=== PATIENT | male | born 1970 | race Caucasian/White ===

== ENCOUNTER 2018-01-21 10:25 | Observation (INO) | payer OTHER ==
[2018-01-21] MEDS: TRANEXAMIC ACID 1,000 MG in DEXTROSE 5% 100 ML IVPB (08:00)
[2018-01-21] MEDS: BUPIVACAINE 0.5% (SDV) 30 ML, morphine SULFATE (PF) 8 MG, EPINEPHrine 0.3 MG, KETOROLAC... IRR ×2 (08:00→15:54)
[2018-01-21] MEDS: traMADol 50 MG TAB PO (12:47)
[2018-01-21] MEDS: GABAPENTIN 300 MG CAP PO ×2 (12:47→20:56)
[2018-01-21] MEDS: DEXAMETHASONE 1 MG TAB PO (12:47)
[2018-01-21] MEDS: LACTATED RINGER'S 1,000 ML IV* (12:48)
[2018-01-21] MEDS: VANCOMYCIN 1 GM (PMX) 250 ML IVPB (13:00)
[2018-01-21] MEDS ORDERED: PROPOFOL 20 ML (13:47)
[2018-01-21] MEDS ORDERED: MIDAZOLAM 1 MG/ML 2 ML INJ (13:47)
[2018-01-21] MEDS ORDERED: ROCURONIUM 50 MG INJ (13:47)
[2018-01-21] MEDS ORDERED: FENTAnyl 50 MCG/ML VIAL (13:47)
[2018-01-21] MEDS ORDERED: NEOSTIGMINE 3 MG/3 ML SYRINGE (13:47)
[2018-01-21] MEDS ORDERED: CEFAZOLIN 1 GM INJ (13:47)
[2018-01-21] MEDS ORDERED: GLYCOPYRROLATE 0.4 MG INJ (13:47)
[2018-01-21] MEDS ORDERED: ONDANSETRON 4 MG INJ (13:48)
[2018-01-21] MEDS ORDERED: DEXAMETHASONE 4 MG/ML 1 ML INJ (13:48)
[2018-01-21] MEDS ORDERED: ROPIVACAINE 0.5 % 30 ML VIAL (13:48)
[2018-01-21] MEDS ORDERED: IPRATROPIUM (NEB) 0.5 MG/2.5 ML AMP HHN (15:00)
[2018-01-21] MEDS ORDERED: TRIMETHOBENZAMIDE 100 MG/ML VIAL IM (15:00)
[2018-01-21] MEDS ORDERED: OXYCODONE/ACETAMINOPHEN (5/325) TAB PO ×3 (15:00→16:00)
[2018-01-21] MEDS ORDERED: DIPHENHYDRAMINE 50 MG INJ IV ×2 (15:00→16:00)
[2018-01-21] MEDS ORDERED: EPHEDrine SULFATE 50 MG/5 ML SYG IV (15:00)
[2018-01-21] MEDS ORDERED: HYDROmorphONE (0.2 MG/ML) 10ML SYG IV ×3 (15:00)
[2018-01-21] MEDS ORDERED: ALBUTEROL 0.083% (NEB) 2.5 MG/3 ML AMP HHN (15:00)
[2018-01-21] MEDS ORDERED: MEPERIDINE 25 MG INJ IV (15:00)
[2018-01-21] MEDS ORDERED: ONDANSETRON 4 MG INJ IV ×2 (15:00→16:00)
[2018-01-21] MEDS ORDERED: MIDAZOLAM 1 MG/ML 2 ML INJ IV (15:00)
[2018-01-21] MEDS ORDERED: FENTAnyl 50 MCG/ML VIAL IV ×3 (15:00)
[2018-01-21] MEDS ORDERED: LABETALOL HCL 20MG INJ IV (15:00)
[2018-01-21] MEDS ORDERED: hydrALAzine 20 MG INJ IV (15:00)
[2018-01-21] MEDS: POLYMYXIN/BACITRACIN 1L IRRIG (15:55)
[2018-01-21] MEDS: THROMBIN 5000 UNIT VIAL (15:55)
[2018-01-21] MEDS: VANCOMYCIN 500MG/NS (PMX) 100 ML IVPB (16:00)
[2018-01-21] MEDS ORDERED: MAGNESIUM HYDROXIDE 30ML CUP PO (16:00)
[2018-01-21] MEDS ORDERED: ACETAMINOPHEN 500 MG TAB PO (16:00)
[2018-01-21] MEDS ORDERED: ZOLPIDEM 5 MG TAB PO (16:00)
[2018-01-21] MEDS ORDERED: KETOROLAC 15 MG INJ IV (16:00)
[2018-01-21] MEDS ORDERED: morphine 2 MG INJ IV ×2 (16:00)
[2018-01-21] MEDS ORDERED: SUGAMMADEX SODIUM 200 MG/2 ML VIAL IV (16:03)
[2018-01-21] MEDS: TRANEXAMIC ACID 1,000 MG in DEXTROSE 5% 100 ML IV (17:44)
[2018-01-21] MEDS: DEXAMETHASONE 2 MG TAB PO (18:36)
[2018-01-21] MEDS: ATORVASTATIN 10 MG TAB PO (20:56)
[2018-01-21] MEDS: SENNA/DOCUSATE NA (8.6MG/50MG) TAB PO (20:56)
[2018-01-22] MEDS: DEXAMETHASONE 2 MG TAB PO ×2 (00:15→06:14)
[2018-01-22] MEDS: VANCOMYCIN 500MG/NS (PMX) 100 ML IVPB (04:41)
[2018-01-22] MEDS: OXYCODONE/ACETAMINOPHEN (5/325) TAB PO (07:59)
[2018-01-22] MEDS: ASPIRIN 81 MG TAB PO (09:07)
[2018-01-22] MEDS: SENNA/DOCUSATE NA (8.6MG/50MG) TAB PO (09:07)
[2018-01-22] MEDS: BENAZEPRIL 20 MG TAB PO (09:08)
[2018-01-22] MEDS: HYDROCHLOROTHIAZIDE 25 MG TAB PO (09:08)
== END 2018-01-22 10:25 | disposition home or self-care (01) ==
LOC: REC 10:25 → MS1 18:08
DX: M19.011 Primary osteoarthritis, right shoulder (principal); M75.101 Unspecified rotator cuff tear or rupture of right shoulder, not specified as traumatic; E78.5 Hyperlipidemia, unspecified; I10 Essential (primary) hypertension; E66.9 Obesity, unspecified; Z68.33 Body mass index [BMI] 33.0-33.9, adult; Z88.0 Allergy status to penicillin
CPT/HCPCS: 23472; 73030-RT; 86999; 88304; 88311; 97165; 99217

== ENCOUNTER 2018-09-01 16:02 | Emergency (ER) | payer OTHER | END 2018-09-01 18:02 | disposition home or self-care (01) | LOC: FTE 16:02 | DX: L02.413 Cutaneous abscess of right upper limb (principal); R40.2412 Glasgow coma scale score 13-15, at arrival to emergency department | CPT/HCPCS: 10060; 87070; 99282-25 ==

== ENCOUNTER 2018-09-16 08:26 | Inpatient (IN) | payer OTHER ==
[~2018-09-16 08:26] MED LIST: DESFLURANE 15 MIN; EPHEDrine SULFATE 50 MG/5 ML SYG
[2018-09-16] MEDS: GABAPENTIN 300 MG CAP PO ×2 (09:38→20:39)
[2018-09-16] MEDS: DEXAMETHASONE 1 MG TAB PO (09:38)
[2018-09-16] MEDS: VANCOMYCIN 1 GM (PMX) 250 ML IVPB (09:45)
[2018-09-16] MEDS: LACTATED RINGER'S 1,000 ML IV* (09:46)
[2018-09-16] MEDS ORDERED: CEFAZOLIN 1 GM INJ (10:15)
[2018-09-16] MEDS ORDERED: MIDAZOLAM 1 MG/ML 2 ML INJ ×2 (10:15→10:16)
[2018-09-16] MEDS ORDERED: HYDROmorphONE 2 MG/ML SYG (10:15)
[2018-09-16] MEDS ORDERED: PROPOFOL 20 ML (10:15)
[2018-09-16] MEDS ORDERED: ROCURONIUM 50 MG INJ (10:15)
[2018-09-16] MEDS ORDERED: ROPIVACAINE 0.5 % 30 ML VIAL (10:16)
[2018-09-16] MEDS ORDERED: POLYMYXIN/BACITRACIN 1L IRRIG (11:07)
[2018-09-16] MEDS ORDERED: THROMBIN 5000 UNIT VIAL (11:07)
[2018-09-16] MEDS ORDERED: CA CHLORIDE 10% 10 ML SYRINGE (11:07)
[2018-09-16] MEDS ORDERED: BUPIVACAINE 0.5%/EPI (SDV) 30 ML INJ (11:07)
[2018-09-16] MEDS ORDERED: OXYCODONE/ACETAMINOPHEN (5/325) TAB PO ×2 (11:30)
[2018-09-16] MEDS ORDERED: EPHEDrine SULFATE 50 MG/5 ML SYG IV (11:30)
[2018-09-16] MEDS: POLYMYXIN/BACITRACIN 1L IRRIG IRR (11:30)
[2018-09-16] MEDS ORDERED: MEPERIDINE 25 MG INJ IV (11:30)
[2018-09-16] MEDS ORDERED: ONDANSETRON 4 MG INJ IV ×2 (11:30→14:00)
[2018-09-16] MEDS ORDERED: FENTAnyl 50 MCG/ML VIAL IV ×3 (11:30)
[2018-09-16] MEDS ORDERED: LABETALOL HCL 20MG INJ IV (11:30)
[2018-09-16] MEDS ORDERED: DIPHENHYDRAMINE 50 MG INJ IV (11:30)
[2018-09-16] MEDS ORDERED: METOCLOPRAMIDE 10 MG INJ IV (11:30)
[2018-09-16] MEDS ORDERED: hydrALAzine 20 MG INJ IV (11:30)
[2018-09-16] MEDS ORDERED: HYDROmorphONE 1 MG/5 ML IV SYRINGE IV ×3 (11:30)
[2018-09-16] MEDS ORDERED: METOCLOPRAMIDE 10 MG INJ (12:11)
[2018-09-16] MEDS ORDERED: DEXAMETHASONE 4 MG/ML 5 ML INJ (12:11)
[2018-09-16] MEDS ORDERED: ONDANSETRON 4 MG INJ (12:11)
[2018-09-16] MEDS ORDERED: KETOROLAC 30 MG INJ (12:12)
[2018-09-16] MEDS ORDERED: MINERAL OIL LIGHT 10 ML VIAL (12:14)
[2018-09-16] MEDS: BUPIVACAINE 0.5% (SDV) 30 ML, morphine SULFATE (PF) 8 MG, EPINEPHrine 0.3 MG, KETOROLAC... IRR (12:16)
[2018-09-16] MEDS ORDERED: PHENYLephrine (100 MCG/ML) 5ML SYG (12:33)
[2018-09-16] MEDS: TRANEXAMIC ACID 1,000 MG in DEXTROSE 5% 100 ML IVPB (12:46)
[2018-09-16] MEDS: VANCOMYCIN 1 GM INJ (13:33)
[2018-09-16] MEDS ORDERED: GLYCOPYRROLATE 0.4 MG INJ (13:55)
[2018-09-16] MEDS ORDERED: NEOSTIGMINE 3 MG/3 ML SYRINGE (13:55)
[2018-09-16] MEDS ORDERED: HYDROmorphONE 1 MG/ML SYG IV (14:00)
[2018-09-16] MEDS ORDERED: oxyCODONE 5 MG TAB PO (14:00)
[2018-09-16] MEDS ORDERED: VANCOMYCIN 500 MG (PMX) 100 ML IVPB ×2 (14:00→23:00)
[2018-09-16] MEDS ORDERED: NACL 0.9% 3 ML SYG IV (14:00)
[2018-09-16] MEDS ORDERED: LOPERAMIDE 2 MG CAP PO (14:00)
[2018-09-16] MEDS ORDERED: MAGNESIUM HYDROXIDE 30ML CUP PO (14:00)
[2018-09-16] MEDS ORDERED: KETOROLAC 15 MG INJ IV (14:00)
[2018-09-16] MEDS ORDERED: ZOLPIDEM 5 MG TAB PO (14:00)
[2018-09-16] MEDS: TRANEXAMIC ACID 1,000 MG in SOD CHLORIDE 0.9% 100 ML IVPB (14:30)
[2018-09-16] MEDS: LIDOCAINE 1% (MPF) 5 ML VIAL SC (16:00)
[2018-09-16 17:08] LABS: ADD MAN DIFF? NO
[2018-09-16 17:11] LABS: BASOPHILS % 0.1 % (0.0-2.0); EOSINOPHILS % 0.1 % (0.0-7.0); HEMATOCRIT 37.4 % (42.0-52.0); HEMOGLOBIN 12.4 g/dl (14.0-18.0); LYMPHOCYTES # 1.1 10^3/ul (0.8-2.9); MEAN CORPUSCULAR HEMOGLOBIN 27.8 pg (29.0-33.0); MEAN CORPUSCULAR HGB CONC 33.2 g/dl (32.0-37.0); MEAN CORPUSCULAR VOLUME 83.9 fl (82.0-101.0); MEAN PLATELET VOLUME 9.2 fl (7.4-10.4); MONOCYTE # 0.2 10^3/ul (0.3-0.9); MONOCYTES % 1.4 % (0.0-11.0); NEUTROPHIL # 12.7 10^3/ul (1.6-7.5); NEUTROPHILS % 89.6 % (39.0-77.0); PLATELET COUNT 384 10^3/UL (140-415); RED BLOOD COUNT 4.46 10^6/ul (4.70-6.10); RED CELL DISTRIBUTION WIDTH 14.2 % (11.5-14.5)
[2018-09-16 17:11] LABS: WHITE BLOOD COUNT 14.2 10^3/ul (4.8-10.8)
[2018-09-16] MEDS ORDERED: VANCOMYCIN IV PER PHARMACY XX (18:00)
[2018-09-16] MEDS: DEXAMETHASONE 2 MG TAB PO (18:25)
[2018-09-16] MEDS: ACETAMINOPHEN 500 MG TAB PO (18:25)
[2018-09-16] MEDS: oxyCODONE 5 MG TAB PO ×2 (18:47→23:11)
[2018-09-16] MEDS: MEROPENEM 1 GM/50ML(PMX) 50 ML IVPB (20:33)
[2018-09-16] MEDS: SENNA/DOCUSATE NA (8.6MG/50MG) TAB PO (20:38)
[2018-09-16] MEDS: ATORVASTATIN 10 MG TAB PO (20:39)
[2018-09-16] MEDS ORDERED: NON-FORMULARY/PATIENT OWN MED (Simvastatin* (Zocor*) 20 MG) PO (21:00)
[2018-09-17] MEDS: DEXAMETHASONE 2 MG TAB PO ×3 (00:24→13:37)
[2018-09-17] MEDS: ACETAMINOPHEN 500 MG TAB PO ×4 (00:24→18:17)
[2018-09-17] MEDS: VANCOMYCIN 1.5 GM in SOD CHLORIDE 0.9% 250 ML IVPB ×2 (00:25→13:37)
[2018-09-17] MEDS: DIPHENHYDRAMINE 50 MG INJ IV (04:04)
[2018-09-17] MEDS: PANTOPRAZOLE (EC) 40 MG TAB PO (06:09)
[2018-09-17] MEDS ORDERED: NON-FORMULARY/PATIENT OWN MED (Omeprazole* 20 MG) PO (09:00)
[2018-09-17] MEDS: LACTATED RINGER'S 1,000 ML IV* (10:00)
[2018-09-17] MEDS: SENNA/DOCUSATE NA (8.6MG/50MG) TAB PO ×3 (10:07→21:32)
[2018-09-17] MEDS: oxyCODONE 5 MG TAB PO ×2 (10:07→19:25)
[2018-09-17] MEDS: MEROPENEM 1 GM/50ML(PMX) 50 ML IVPB ×2 (10:07→21:32)
[2018-09-17] MEDS: BENAZEPRIL 20 MG TAB PO (10:08)
[2018-09-17] MEDS: LORATADINE 10 MG TAB PO (10:08)
[2018-09-17] MEDS: HYDROCHLOROTHIAZIDE 25 MG TAB PO (10:09)
[2018-09-17 17:24] LABS: ANION GAP 11 (5-13); BLOOD UREA NITROGEN 18 mg/dl (7-20); CALCIUM 9.4 mg/dl (8.4-10.2); CARBON DIOXIDE 27 mmol/L (21-31); CHLORIDE 100 mmol/L (97-110); CREATININE 0.92 mg/dl (0.61-1.24); Estimated GFR > 60 mL/min (>60); GLUCOSE 144 mg/dl (70-220); POTASSIUM 4.4 mmol/L (3.5-5.1); SODIUM 138 mmol/L (135-144)
[2018-09-17] MEDS: HEPARIN (10 UNITS/ML) 5ML SYG IV (19:25)
[2018-09-17] MEDS: ATORVASTATIN 10 MG TAB PO ×2 (21:00→21:32)
[2018-09-17] MEDS: GABAPENTIN 300 MG CAP PO ×2 (21:00→21:32)
[2018-09-18 01:13] LABS: CREATININE 0.94 mg/dl (0.61-1.24)
[2018-09-18 01:13] LABS: BLOOD UREA NITROGEN 21 mg/dl (7-20)
[2018-09-18 01:32] LABS: VANCOMYCIN,TROUGH 8.3 ug/ml (10.0-20.0)
[2018-09-18] MEDS: DIPHENHYDRAMINE 50 MG INJ IV (01:48)
[2018-09-18] MEDS: oxyCODONE 5 MG TAB PO ×3 (01:48→11:29)
[2018-09-18] MEDS: VANCOMYCIN 1.5 GM in SOD CHLORIDE 0.9% 250 ML IVPB (01:48)
[2018-09-18 05:01] LABS: ADD MAN DIFF? NO
[2018-09-18 05:06] LABS: ABNORMAL IP MESSAGE 1; BASOPHILS % 0.1 % (0.0-2.0); HEMATOCRIT 31.5 % (42.0-52.0); HEMOGLOBIN 10.1 g/dl (14.0-18.0); LYMPHOCYTES # 2.5 10^3/ul (0.8-2.9); LYMPHOCYTES % 15.5 % (15.0-51.0); MEAN CORPUSCULAR HEMOGLOBIN 27.7 pg (29.0-33.0); MEAN CORPUSCULAR HGB CONC 32.1 g/dl (32.0-37.0); MEAN CORPUSCULAR VOLUME 86.5 fl (82.0-101.0); MEAN PLATELET VOLUME 9.6 fl (7.4-10.4); MONOCYTE # 1.8 10^3/ul (0.3-0.9); MONOCYTES % 11.2 % (0.0-11.0); NEUTROPHIL # 11.6 10^3/ul (1.6-7.5); NEUTROPHILS % 72.4 % (39.0-77.0); PLATELET COUNT 354 10^3/UL (140-415); POSITIVE DIFF @See below; RED BLOOD COUNT 3.64 10^6/ul (4.70-6.10); RED CELL DISTRIBUTION WIDTH 14.6 % (11.5-14.5)
[2018-09-18 05:28] LABS: ANION GAP 8 (5-13); BLOOD UREA NITROGEN 21 mg/dl (7-20); CALCIUM 9.1 mg/dl (8.4-10.2); CARBON DIOXIDE 27 mmol/L (21-31); CHLORIDE 106 mmol/L (97-110); CREATININE 0.95 mg/dl (0.61-1.24); Estimated GFR > 60 mL/min (>60); GLUCOSE 118 mg/dl (70-220); POTASSIUM 4.2 mmol/L (3.5-5.1); SODIUM 141 mmol/L (135-144)
[2018-09-18] MEDS: ACETAMINOPHEN 500 MG TAB PO ×3 (06:00→12:47)
[2018-09-18] MEDS: PANTOPRAZOLE (EC) 40 MG TAB PO (06:03)
[2018-09-18] MEDS: MEROPENEM 1 GM/50ML(PMX) 50 ML IVPB (08:30)
[2018-09-18] MEDS: SENNA/DOCUSATE NA (8.6MG/50MG) TAB PO (08:30)
[2018-09-18] MEDS: LORATADINE 10 MG TAB PO (08:30)
[2018-09-18] MEDS: BENAZEPRIL 20 MG TAB PO (08:31)
[2018-09-18] MEDS: HYDROCHLOROTHIAZIDE 25 MG TAB PO (08:31)
[2018-09-18] MEDS: VANCOMYCIN 1.25 GM in SOD CHLORIDE 0.9% 250 ML IVPB (09:49)
[2018-09-18] MEDS: LACTATED RINGER'S 1,000 ML IV* (14:00)
== END 2018-09-18 15:10 | disposition home health service (06) | DRG 483 ==
LOC: REC 08:26 → MS1 15:29
PROVIDERS: Orthopaedic Surgery
PROC: 0RRJ0J6 Replacement of Right Shoulder Joint with Synthetic Substitute, Humeral Surface, Open Approach (ICD-10-PCS; principal; 2018-09-16 10:30)
PROC: 0RPJ0JZ Removal of Synthetic Substitute from Right Shoulder Joint, Open Approach (ICD-10-PCS; 2018-09-16 10:30)
PROC: 02HV33Z Insertion of Infusion Device into Superior Vena Cava, Percutaneous Approach (ICD-10-PCS; 2018-09-16 11:30)
PROC: B54NZZA Ultrasonography of Left Upper Extremity Veins, Guidance (ICD-10-PCS; 2018-09-16 11:30)
DX: T84.59XA Infection and inflammatory reaction due to other internal joint prosthesis, initial encounter (principal); T84.84XA Pain due to internal orthopedic prosthetic devices, implants and grafts, initial encounter; I10 Essential (primary) hypertension; E78.2 Mixed hyperlipidemia; E66.9 Obesity, unspecified; Z68.36 Body mass index [BMI] 36.0-36.9, adult; Z96.611 Presence of right artificial shoulder joint; Z88.0 Allergy status to penicillin; Y83.8 Other surgical procedures as the cause of abnormal reaction of the patient, or of later complication, without mention of misadventure at the time of the procedure
CPT/HCPCS: 36569; 71045; 76937; 80048; 80202; 82565; 84520; 85025; 87070; 87102; 87116; 88300; 88304

== ENCOUNTER 2018-10-18 17:10 | Emergency (ER) | payer OTHER ==
[2018-10-18 19:35] LABS: ADD MAN DIFF? NO
[2018-10-18 19:43] LABS: BASOPHIL # 0.1 10^3/ul (0.0-0.1); BASOPHILS % 0.8 % (0.0-2.0); EOSINOPHILS # 0.3 10^3/ul (0.0-0.5); EOSINOPHILS % 3.1 % (0.0-7.0); HEMATOCRIT 40.7 % (42.0-52.0); HEMOGLOBIN 13.5 g/dl (14.0-18.0); LYMPHOCYTES # 2.8 10^3/ul (0.8-2.9); LYMPHOCYTES % 27.9 % (15.0-51.0); MEAN CORPUSCULAR HEMOGLOBIN 28.4 pg (29.0-33.0); MEAN CORPUSCULAR HGB CONC 33.2 g/dl (32.0-37.0); MEAN CORPUSCULAR VOLUME 85.5 fl (82.0-101.0); MEAN PLATELET VOLUME 9.9 fl (7.4-10.4); MONOCYTE # 1.2 10^3/ul (0.3-0.9); MONOCYTES % 12.2 % (0.0-11.0); NEUTROPHIL # 5.6 10^3/ul (1.6-7.5); NEUTROPHILS % 55.7 % (39.0-77.0); PLATELET COUNT 332 10^3/UL (140-415); RED BLOOD COUNT 4.76 10^6/ul (4.70-6.10); RED CELL DISTRIBUTION WIDTH 15.2 % (11.5-14.5)
[2018-10-18 19:43] LABS: WHITE BLOOD COUNT 10.1 10^3/ul (4.8-10.8)
[2018-10-18 20:02] LABS: INR 0.87; PROTIME 11.9 Sec (11.9-14.9); PT RATIO 0.9
[2018-10-18 20:03] LABS: PARTIAL THROMBOPLASTIN TIME 32.3 Sec (23.0-35.0)
[2018-10-18 20:05] LABS: D-DIMER 1084.63 ng/ml (<460)
[2018-10-18 20:06] LABS: ANION GAP 11 (5-13); BLOOD UREA NITROGEN 22 mg/dl (7-20); CALCIUM 10.2 mg/dl (8.4-10.2); CARBON DIOXIDE 23 mmol/L (21-31); CHLORIDE 105 mmol/L (97-110); CREATININE 0.93 mg/dl (0.61-1.24); Estimated GFR > 60 mL/min (>60); GLUCOSE 101 mg/dl (70-220); POTASSIUM 3.7 mmol/L (3.5-5.1); SODIUM 139 mmol/L (135-144)
[2018-10-18 20:16] LABS: B-TYPE NATRIURETIC PEPTIDE 14 PG/ML (0-125); TROPONIN-I < 0.012 ng/ml (0.000-0.120)
[2018-10-18] MEDS: SOD CHLORIDE 0.9% 100 ML (21:01)
[2018-10-18] MEDS: IOHEXOL 100 ML (21:01)
== END 2018-10-18 21:55 | disposition home or self-care (01) ==
LOC: E/R 17:10
DX: D64.9 Anemia, unspecified (principal); R06.00 Dyspnea, unspecified; R40.2142 Coma scale, eyes open, spontaneous, at arrival to emergency department; R40.2252 Coma scale, best verbal response, oriented, at arrival to emergency department; R40.2362 Coma scale, best motor response, obeys commands, at arrival to emergency department; I10 Essential (primary) hypertension; Z87.891 Personal history of nicotine dependence
CPT/HCPCS: 71045; 71275; 80048; 83880; 84484; 85025; 85378; 85610; 85730; 93005; 99285-25

== ENCOUNTER 2018-12-21 06:12 | Inpatient (IN) | payer OTHER ==
[2018-12-21] MEDS: TRANEXAMIC ACID 1GM/100ML(PMX) 100 ML IVPB ×2 (06:00→09:26)
[~2018-12-21 06:12] MED LIST changes: +BUPIVACAINE 0.5% (SDV) 30 ML, morphine SULFATE (PF) 8 MG, EPINEPHrine 0.3 MG, KETOROLAC... IRR; -DESFLURANE 15 MIN; -EPHEDrine SULFATE 50 MG/5 ML SYG
[2018-12-21] MEDS: DEXAMETHASONE 1 MG TAB PO (06:31)
[2018-12-21] MEDS: GABAPENTIN 300 MG CAP PO ×2 (06:31→21:35)
[2018-12-21] MEDS: VANCOMYCIN 1 GM (PMX) 250 ML IVPB (06:32)
[2018-12-21] MEDS ORDERED: MIDAZOLAM 1 MG/ML 2 ML INJ (06:59)
[2018-12-21] MEDS ORDERED: GLYCOPYRROLATE 0.4 MG INJ (06:59)
[2018-12-21] MEDS ORDERED: PROPOFOL 20 ML (06:59)
[2018-12-21] MEDS ORDERED: ROCURONIUM 50 MG INJ (06:59)
[2018-12-21] MEDS ORDERED: ONDANSETRON 4 MG INJ (06:59)
[2018-12-21] MEDS ORDERED: FENTAnyl 50 MCG/ML VIAL (06:59)
[2018-12-21] MEDS ORDERED: DEXAMETHASONE 4 MG/ML 5 ML INJ (06:59)
[2018-12-21] MEDS ORDERED: CEFAZOLIN 1 GM INJ (06:59)
[2018-12-21] MEDS ORDERED: NEOSTIGMINE 3 MG/3 ML SYRINGE (06:59)
[2018-12-21] MEDS ORDERED: TRIMETHOBENZAMIDE 100 MG/ML VIAL IM (07:00)
[2018-12-21] MEDS ORDERED: DIPHENHYDRAMINE 50 MG INJ IV ×2 (07:00→08:30)
[2018-12-21] MEDS ORDERED: OXYCODONE/ACETAMINOPHEN (5/325) TAB PO ×2 (07:00)
[2018-12-21] MEDS ORDERED: hydrALAzine 20 MG INJ IV (07:00)
[2018-12-21] MEDS ORDERED: MEPERIDINE 25 MG INJ IV (07:00)
[2018-12-21] MEDS ORDERED: ALBUTEROL 0.083% (NEB) 2.5 MG/3 ML AMP HHN (07:00)
[2018-12-21] MEDS ORDERED: FENTAnyl 50 MCG/ML VIAL IV ×3 (07:00)
[2018-12-21] MEDS ORDERED: IPRATROPIUM (NEB) 0.5 MG/2.5 ML AMP HHN (07:00)
[2018-12-21] MEDS ORDERED: ONDANSETRON 4 MG INJ IV ×2 (07:00→08:30)
[2018-12-21] MEDS ORDERED: LABETALOL HCL 20MG INJ IV (07:00)
[2018-12-21] MEDS ORDERED: HYDROmorphONE 1 MG/5 ML IV SYRINGE IV ×3 (07:00)
[2018-12-21] MEDS ORDERED: MIDAZOLAM 1 MG/ML 2 ML INJ IV (07:00)
[2018-12-21] MEDS ORDERED: EPHEDrine SULFATE 50 MG/5 ML SYG IV (07:00)
[2018-12-21] MEDS ORDERED: ROPIVACAINE 0.5 % 30 ML VIAL (07:02)
[2018-12-21] MEDS: BUPIVACAINE 0.5%/EPI (SDV) 30 ML INJ (07:15)
[2018-12-21] MEDS: POLYMYXIN/BACITRACIN 1L IRRIG (07:15)
[2018-12-21] MEDS: THROMBIN (BOVINE) 5,000 UNIT VIAL TP (07:15)
[2018-12-21] MEDS ORDERED: TRANEXAMIC ACID 1GM/100ML(PMX) 100 ML (07:16)
[2018-12-21] MEDS ORDERED: VANCOMYCIN 1 GM INJ (08:14)
[2018-12-21] MEDS: CA CHLORIDE (GM) 10% 10 ML INJ (08:15)
[2018-12-21] MEDS ORDERED: SUGAMMADEX SODIUM 200 MG/2 ML VIAL IV (08:29)
[2018-12-21] MEDS ORDERED: MAGNESIUM HYDROXIDE 30ML CUP PO (08:30)
[2018-12-21] MEDS: VANCOMYCIN 500 MG (PMX) 100 ML IVPB ×2 (08:30→18:11)
[2018-12-21] MEDS ORDERED: HYDROCORTISONE 0.5% 28.35 GM OINT TOP (08:30)
[2018-12-21] MEDS ORDERED: LOPERAMIDE 2 MG CAP PO (08:30)
[2018-12-21] MEDS ORDERED: HYDROmorphONE 1 MG/ML SYG IV (08:30)
[2018-12-21] MEDS ORDERED: KETOROLAC 15 MG INJ IV (08:30)
[2018-12-21] MEDS ORDERED: ZOLPIDEM 5 MG TAB PO (08:30)
[2018-12-21] MEDS ORDERED: NACL 0.9% 3 ML SYG IV (08:30)
[2018-12-21] MEDS ORDERED: oxyCODONE 5 MG TAB PO ×2 (08:30)
[2018-12-21] MEDS: LORATADINE 10 MG TAB PO (09:00)
[2018-12-21] MEDS: FLUTICASONE 0.05% 16 GM NAS SPRAY NASAL (09:00)
[2018-12-21] MEDS: CARBAMIDE PEROXIDE 6.5% 15ML OTIC BOTH EARS ×2 (09:00→21:00)
[2018-12-21] MEDS: SENNA/DOCUSATE NA (8.6MG/50MG) TAB PO ×2 (11:59→21:35)
[2018-12-21] MEDS: HYDROCHLOROTHIAZIDE 25 MG TAB PO (11:59)
[2018-12-21] MEDS: BENAZEPRIL 20 MG TAB PO (11:59)
[2018-12-21] MEDS: valACYclovir 500 MG TAB PO ×2 (11:59→21:35)
[2018-12-21] MEDS: CLOTRIMAZOLE 1% 30 GM CR TOP ×2 (12:00→21:00)
[2018-12-21] MEDS: ACETAMINOPHEN 500 MG TAB PO ×2 (13:35→18:10)
[2018-12-21] MEDS: DEXAMETHASONE 2 MG TAB PO ×2 (13:35→18:10)
[2018-12-21] MEDS: PANTOPRAZOLE (EC) 40 MG TAB PO (18:10)
[2018-12-21] MEDS: ATORVASTATIN 10 MG TAB PO (21:35)
[2018-12-22] MEDS: DEXAMETHASONE 2 MG TAB PO ×2 (00:09→05:23)
[2018-12-22] MEDS: ACETAMINOPHEN 500 MG TAB PO ×3 (00:09→12:15)
[2018-12-22] MEDS: CYCLOBENZAPRINE 10 MG TAB PO (02:07)
[2018-12-22] MEDS: VANCOMYCIN 500 MG (PMX) 100 ML IVPB (05:22)
[2018-12-22] MEDS: PANTOPRAZOLE (EC) 40 MG TAB PO (05:23)
[2018-12-22] MEDS: SENNA/DOCUSATE NA (8.6MG/50MG) TAB PO (08:48)
[2018-12-22] MEDS: HYDROCHLOROTHIAZIDE 25 MG TAB PO (08:49)
[2018-12-22] MEDS: LORATADINE 10 MG TAB PO (08:49)
[2018-12-22] MEDS: BENAZEPRIL 20 MG TAB PO (08:49)
[2018-12-22] MEDS: FLUTICASONE 0.05% 16 GM NAS SPRAY NASAL (08:50)
[2018-12-22] MEDS: CARBAMIDE PEROXIDE 6.5% 15ML OTIC BOTH EARS (08:50)
[2018-12-22] MEDS: valACYclovir 500 MG TAB PO (08:50)
[2018-12-22] MEDS: CLOTRIMAZOLE 1% 30 GM CR TOP (08:51)
[2018-12-22] MEDS: oxyCODONE 5 MG TAB PO (08:53)
== END 2018-12-22 17:38 | disposition home or self-care (01) | DRG 483 ==
LOC: REC 06:12 → MS1 10:06
PROC: 0RRJ00Z Replacement of Right Shoulder Joint with Reverse Ball and Socket Synthetic Substitute, Open Approach (ICD-10-PCS; principal; 2018-12-21 07:00)
PROC: 0RPJ0JZ Removal of Synthetic Substitute from Right Shoulder Joint, Open Approach (ICD-10-PCS; 2018-12-21 07:00)
DX: T84.098A Other mechanical complication of other internal joint prosthesis, initial encounter (principal); T84.59XA Infection and inflammatory reaction due to other internal joint prosthesis, initial encounter; E66.9 Obesity, unspecified; Z68.36 Body mass index [BMI] 36.0-36.9, adult; K21.9 Gastro-esophageal reflux disease without esophagitis; E78.2 Mixed hyperlipidemia; Z96.611 Presence of right artificial shoulder joint
CPT/HCPCS: 73030-RT; 86999; 87070; 87075; 87102; 87116; 97161

== ENCOUNTER 2019-01-11 07:09 | Day surgery (SDC) | payer OTHER ==
[2019-01-11] MEDS ORDERED: PROPOFOL 60 ML (09:40)
[2019-01-11] MEDS ORDERED: FENTAnyl 50 MCG/ML VIAL (11:14)
[2019-01-11] MEDS ORDERED: MIDAZOLAM 1 MG/ML 2 ML INJ ×2 (11:15)
== END 2019-01-11 13:12 | disposition home or self-care (01) ==
LOC: GIL 07:09
DX: K92.1 Melena (principal); D12.5 Benign neoplasm of sigmoid colon; K64.8 Other hemorrhoids; I10 Essential (primary) hypertension
CPT/HCPCS: 45385; 88305

== ENCOUNTER 2019-02-10 10:25 | Inpatient (IN) | payer OTHER ==
[~2019-02-10 10:25] MED LIST changes: -BUPIVACAINE 0.5% (SDV) 30 ML, morphine SULFATE (PF) 8 MG, EPINEPHrine 0.3 MG, KETOROLAC... IRR; +CLINDAMYCIN 900 MG/50 ML D5W IVPB IVPB; +ETOMIDATE 20 MG INJ; +SUCCINYLCHOLINE CHLORIDE 100 MG/5 ML SYG IV
[2019-02-10] MEDS: SOD CHLORIDE 0.9% 1,000 ML IV (11:54)
[2019-02-10] MEDS ORDERED: ROCURONIUM 50 MG INJ (12:17)
[2019-02-10] MEDS ORDERED: NEOSTIGMINE 3 MG/3 ML SYRINGE (12:17)
[2019-02-10] MEDS ORDERED: FENTAnyl 50 MCG/ML VIAL (12:17)
[2019-02-10] MEDS ORDERED: ONDANSETRON 4 MG INJ (12:17)
[2019-02-10] MEDS ORDERED: CEFAZOLIN 1 GM INJ (12:17)
[2019-02-10] MEDS ORDERED: MIDAZOLAM 1 MG/ML 2 ML INJ (12:17)
[2019-02-10] MEDS ORDERED: DEXAMETHASONE 4 MG/ML 5 ML INJ (12:17)
[2019-02-10] MEDS ORDERED: PROPOFOL 20 ML (12:17)
[2019-02-10] MEDS ORDERED: GLYCOPYRROLATE 0.4 MG INJ (12:17)
[2019-02-10] MEDS ORDERED: HYDROmorphONE 1 MG/5 ML IV SYRINGE IV ×2 (14:00)
[2019-02-10] MEDS ORDERED: MIDAZOLAM 1 MG/ML 2 ML INJ IV (14:00)
[2019-02-10] MEDS ORDERED: FENTAnyl 50 MCG/ML VIAL IV ×2 (14:00)
[2019-02-10] MEDS ORDERED: DIPHENHYDRAMINE 50 MG INJ IV ×2 (14:00)
[2019-02-10] MEDS ORDERED: EPHEDrine 25 MG/5 ML SYG IV (14:00)
[2019-02-10] MEDS ORDERED: IPRATROPIUM (NEB) 0.5 MG/2.5 ML AMP HHN (14:00)
[2019-02-10] MEDS ORDERED: NALBUPHINE HCL (10 MG/1 ML) INJ IV (14:00)
[2019-02-10] MEDS ORDERED: HYDROmorphONE 0.5 MG/0.5 ML SYG IV ×2 (14:00)
[2019-02-10] MEDS ORDERED: LABETALOL HCL 20MG INJ IV (14:00)
[2019-02-10] MEDS ORDERED: NALOXONE (0.4 MG/ML) INJ IV ×2 (14:00→17:30)
[2019-02-10] MEDS ORDERED: TRIMETHOBENZAMIDE 100 MG/ML VIAL IM ×2 (14:00)
[2019-02-10] MEDS ORDERED: ONDANSETRON 4 MG INJ IV (14:00)
[2019-02-10] MEDS ORDERED: OXYCODONE/ACETAMINOPHEN (5/325) TAB PO ×2 (14:00)
[2019-02-10] MEDS ORDERED: KETOROLAC 30 MG INJ IV (14:00)
[2019-02-10] MEDS ORDERED: hydrALAzine 20 MG INJ IV ×2 (14:00→23:00)
[2019-02-10] MEDS ORDERED: ALBUTEROL 0.083% (NEB) 2.5 MG/3 ML AMP HHN (14:00)
[2019-02-10] MEDS ORDERED: morphine SULFATE/PF (10 MG/10 ML) INJ (14:03)
[2019-02-10] MEDS ORDERED: METHYLENE BLUE 50 MG/10 ML AMPUL ×2 (16:13→16:30)
[2019-02-10] MEDS ORDERED: SUGAMMADEX SODIUM 200 MG/2 ML VIAL IV ×3 (17:18→17:40)
[2019-02-10] MEDS ORDERED: KETOROLAC 30 MG INJ (17:48)
[2019-02-10] MEDS: FENTAnyl 50 MCG/ML VIAL IV ×4 (18:02→18:30)
[2019-02-10] MEDS: HYDROmorphONE 1 MG/5 ML IV SYRINGE IV ×3 (18:21→18:38)
[2019-02-10 18:34] LABS: ADD MAN DIFF? NO
[2019-02-10 18:36] LABS: BASOPHIL # 0.1 10^3/ul (0.0-0.1); BASOPHILS % 0.4 % (0.0-2.0); EOSINOPHILS # 0.1 10^3/ul (0.0-0.5); EOSINOPHILS % 0.5 % (0.0-7.0); HEMATOCRIT 41.2 % (42.0-52.0); HEMOGLOBIN 13.5 g/dl (14.0-18.0); LYMPHOCYTES # 2.4 10^3/ul (0.8-2.9); LYMPHOCYTES % 14.4 % (15.0-51.0); MEAN CORPUSCULAR HEMOGLOBIN 28.8 pg (29.0-33.0); MEAN CORPUSCULAR HGB CONC 32.8 g/dl (32.0-37.0); MEAN PLATELET VOLUME 10.5 fl (7.4-10.4); MONOCYTE # 1.2 10^3/ul (0.3-0.9); MONOCYTES % 7.2 % (0.0-11.0); NEUTROPHIL # 13.1 10^3/ul (1.6-7.5); NEUTROPHILS % 77.2 % (39.0-77.0); PLATELET COUNT 269 10^3/UL (140-415); RED BLOOD COUNT 4.68 10^6/ul (4.70-6.10); RED CELL DISTRIBUTION WIDTH 14.6 % (11.5-14.5)
[2019-02-10 18:42] LABS: HOLD TRANSMISSIONS 1
[2019-02-10] MEDS: ACETAMINOPHEN 1000MG/100ML IV 100 ML IVPB (18:44)
[2019-02-10 18:53] LABS: Estimated GFR > 60 mL/min (>60)
[2019-02-10 19:08] LABS: ALANINE AMINOTRANSFERASE 45 IU/L (13-69); ALBUMIN 3.4 g/dl (3.3-4.9); ALBUMIN/GLOBULIN RATIO 1.09; ALKALINE PHOSPHATASE 53 IU/L (42-121); ANION GAP 9 (5-13); ASPARTATE AMINO TRANSFERASE 61 IU/L (15-46); BILIRUBIN,INDIRECT 0.5 mg/dl (0-1.1); BILIRUBIN,TOTAL 0.5 mg/dl (0.2-1.3); BLOOD UREA NITROGEN 12 mg/dl (7-20); CALCIUM 7.6 mg/dl (8.4-10.2); CARBON DIOXIDE 22 mmol/L (21-31); CHLORIDE 108 mmol/L (97-110); CREATININE 0.92 mg/dl (0.61-1.24); GLUCOSE 119 mg/dl (70-220); POTASSIUM 3.6 mmol/L (3.5-5.1); SODIUM 139 mmol/L (135-144); TOTAL PROTEIN 6.5 g/dl (6.1-8.1)
[2019-02-10] MEDS: metroNIDAZOLE 500 MG/NS (PMX) 100 ML IVPB (19:30)
[2019-02-10] MEDS: MEPERIDINE 25 MG INJ IV (19:45)
[2019-02-10] MEDS: CIPROFLOXACIN 400MG/D5W 200 ML IVPB (20:56)
[2019-02-10] MEDS: LACTATED RINGER'S 1,000 ML IV (20:57)
[2019-02-10] MEDS ORDERED: ACETAMINOPHEN 1000 MG/100 ML IVPB IV (23:00)
[2019-02-11] MEDS: metroNIDAZOLE 500 MG/NS (PMX) 100 ML IVPB ×2 (02:51→11:03)
[2019-02-11] MEDS: HYDROmorphONE 0.2 MG/ML PCA IV ×2 (03:00→17:50)
[2019-02-11] MEDS: LACTATED RINGER'S 1,000 ML IV ×2 (03:23→09:04)
[2019-02-11 04:59] LABS: ADD MAN DIFF? NO
[2019-02-11 05:00] LABS: BASOPHILS % 0.1 % (0.0-2.0); HEMATOCRIT 39.4 % (42.0-52.0); HEMOGLOBIN 13.1 g/dl (14.0-18.0); LYMPHOCYTES # 0.8 10^3/ul (0.8-2.9); LYMPHOCYTES % 4.9 % (15.0-51.0); MEAN CORPUSCULAR HEMOGLOBIN 28.9 pg (29.0-33.0); MEAN CORPUSCULAR HGB CONC 33.2 g/dl (32.0-37.0); MEAN PLATELET VOLUME 10.6 fl (7.4-10.4); MONOCYTE # 1.3 10^3/ul (0.3-0.9); MONOCYTES % 8.5 % (0.0-11.0); NEUTROPHIL # 13.4 10^3/ul (1.6-7.5); NEUTROPHILS % 86.1 % (39.0-77.0); PLATELET COUNT 306 10^3/UL (140-415); RED BLOOD COUNT 4.53 10^6/ul (4.70-6.10); RED CELL DISTRIBUTION WIDTH 14.3 % (11.5-14.5)
[2019-02-11 05:00] LABS: WHITE BLOOD COUNT 15.6 10^3/ul (4.8-10.8)
[2019-02-11 05:27] LABS: ALANINE AMINOTRANSFERASE 43 IU/L (13-69); ALBUMIN 3.9 g/dl (3.3-4.9); ALBUMIN/GLOBULIN RATIO 1.34; ALKALINE PHOSPHATASE 44 IU/L (42-121); ANION GAP 11 (5-13); ASPARTATE AMINO TRANSFERASE 58 IU/L (15-46); BILIRUBIN,INDIRECT 0.7 mg/dl (0-1.1); BILIRUBIN,TOTAL 0.7 mg/dl (0.2-1.3); BLOOD UREA NITROGEN 13 mg/dl (7-20); CALCIUM 8.8 mg/dl (8.4-10.2); CARBON DIOXIDE 22 mmol/L (21-31); CHLORIDE 106 mmol/L (97-110); CREATININE 0.81 mg/dl (0.61-1.24); Estimated GFR > 60 mL/min (>60); GLUCOSE 147 mg/dl (70-220); POTASSIUM 3.8 mmol/L (3.5-5.1); SODIUM 139 mmol/L (135-144); TOTAL PROTEIN 6.8 g/dl (6.1-8.1)
[2019-02-11] MEDS: DIPHENHYDRAMINE 50 MG CAP PO ×3 (05:45→18:01)
[2019-02-11] MEDS: FLUTICASONE 0.05% 16 GM NAS SPRAY NASAL (09:00)
[2019-02-11] MEDS: CIPROFLOXACIN 400MG/D5W 200 ML IVPB (09:04)
[2019-02-11] MEDS: CALCIUM CARBONATE 500 MG CHEW TAB PO (23:09)
[2019-02-12] MEDS: LACTATED RINGER'S 1,000 ML IV ×2 (00:06→08:56)
[2019-02-12] MEDS: DIPHENHYDRAMINE 50 MG CAP PO ×2 (00:14→06:00)
[2019-02-12] MEDS: HYDROmorphONE 0.2 MG/ML PCA IV (04:41)
[2019-02-12] MEDS: CALCIUM CARBONATE 500 MG CHEW TAB PO ×2 (06:00→15:20)
[2019-02-12] MEDS: FLUTICASONE 0.05% 16 GM NAS SPRAY NASAL (08:55)
[2019-02-12] MEDS: D5W-0.45 NACL + KCL 20 MEQ 1,000 ML IV (15:20)
[2019-02-12] MEDS: KETOROLAC 30 MG INJ IV (18:30)
[2019-02-13] MEDS: D5W-0.45 NACL + KCL 20 MEQ 1,000 ML IV ×3 (00:25→21:42)
[2019-02-13] MEDS: KETOROLAC 30 MG INJ IV ×4 (00:25→23:43)
[2019-02-13] MEDS: LORAZEPAM 2 MG INJ IV ×3 (04:46→23:46)
[2019-02-13] MEDS: PANTOPRAZOLE 40 MG INJ IV ×2 (04:46→16:59)
[2019-02-13] MEDS: FLUTICASONE 0.05% 16 GM NAS SPRAY NASAL (09:00)
[2019-02-13] MEDS: ONDANSETRON 4 MG INJ IV (09:35)
[2019-02-13] MEDS: CALCIUM CARBONATE 500 MG CHEW TAB PO ×2 (09:35→23:55)
[2019-02-13 13:13] LABS: ADD MAN DIFF? NO
[2019-02-13 13:15] LABS: WHITE BLOOD COUNT 12.3 10^3/ul (4.8-10.8)
[2019-02-13 13:15] LABS: BASOPHIL # 0.1 10^3/ul (0.0-0.1); BASOPHILS % 0.4 % (0.0-2.0); EOSINOPHILS % 0.3 % (0.0-7.0); HEMATOCRIT 36.2 % (42.0-52.0); HEMOGLOBIN 11.9 g/dl (14.0-18.0); LYMPHOCYTES # 1.8 10^3/ul (0.8-2.9); LYMPHOCYTES % 14.7 % (15.0-51.0); MEAN CORPUSCULAR HEMOGLOBIN 28.7 pg (29.0-33.0); MEAN CORPUSCULAR HGB CONC 32.9 g/dl (32.0-37.0); MEAN CORPUSCULAR VOLUME 87.4 fl (82.0-101.0); MEAN PLATELET VOLUME 9.8 fl (7.4-10.4); MONOCYTE # 1.5 10^3/ul (0.3-0.9); MONOCYTES % 12.2 % (0.0-11.0); NEUTROPHIL # 8.8 10^3/ul (1.6-7.5); NEUTROPHILS % 72.1 % (39.0-77.0); PLATELET COUNT 261 10^3/UL (140-415); RED BLOOD COUNT 4.14 10^6/ul (4.70-6.10); RED CELL DISTRIBUTION WIDTH 14.5 % (11.5-14.5)
[2019-02-13 13:33] LABS: ANION GAP 6 (5-13); BLOOD UREA NITROGEN 8 mg/dl (7-20); CALCIUM 8.9 mg/dl (8.4-10.2); CARBON DIOXIDE 28 mmol/L (21-31); CHLORIDE 106 mmol/L (97-110); Estimated GFR > 60 mL/min (>60); GLUCOSE 119 mg/dl (70-220); POTASSIUM 3.9 mmol/L (3.5-5.1); SODIUM 140 mmol/L (135-144)
[2019-02-13] MEDS ORDERED: ACETAMINOPHEN 325 MG TAB PO (19:50)
[2019-02-14 05:20] LABS: ADD MAN DIFF? NO
[2019-02-14 05:27] LABS: WHITE BLOOD COUNT 10.2 10^3/ul (4.8-10.8)
[2019-02-14 05:27] LABS: BASOPHIL # 0.1 10^3/ul (0.0-0.1); BASOPHILS % 0.6 % (0.0-2.0); EOSINOPHILS # 0.3 10^3/ul (0.0-0.5); EOSINOPHILS % 2.8 % (0.0-7.0); HEMATOCRIT 35.6 % (42.0-52.0); HEMOGLOBIN 11.7 g/dl (14.0-18.0); LYMPHOCYTES # 2.4 10^3/ul (0.8-2.9); LYMPHOCYTES % 23.7 % (15.0-51.0); MEAN CORPUSCULAR HEMOGLOBIN 28.8 pg (29.0-33.0); MEAN CORPUSCULAR HGB CONC 32.9 g/dl (32.0-37.0); MEAN CORPUSCULAR VOLUME 87.7 fl (82.0-101.0); MEAN PLATELET VOLUME 10.5 fl (7.4-10.4); MONOCYTE # 1.2 10^3/ul (0.3-0.9); MONOCYTES % 11.4 % (0.0-11.0); NEUTROPHIL # 6.2 10^3/ul (1.6-7.5); NEUTROPHILS % 61.1 % (39.0-77.0); PLATELET COUNT 295 10^3/UL (140-415); RED BLOOD COUNT 4.06 10^6/ul (4.70-6.10)
[2019-02-14 05:48] LABS: ANION GAP 8 (5-13); BLOOD UREA NITROGEN 10 mg/dl (7-20); CALCIUM 8.8 mg/dl (8.4-10.2); CARBON DIOXIDE 28 mmol/L (21-31); CHLORIDE 106 mmol/L (97-110); Estimated GFR > 60 mL/min (>60); GLUCOSE 116 mg/dl (70-220); POTASSIUM 3.4 mmol/L (3.5-5.1); SODIUM 142 mmol/L (135-144)
[2019-02-14] MEDS: PANTOPRAZOLE 40 MG INJ IV ×2 (06:15→18:24)
[2019-02-14] MEDS: KETOROLAC 30 MG INJ IV ×3 (06:19→18:25)
[2019-02-14] MEDS: FLUTICASONE 0.05% 16 GM NAS SPRAY NASAL (09:00)
[2019-02-14] MEDS: D5W-0.45 NACL + KCL 20 MEQ 1,000 ML IV ×3 (09:28→19:42)
[2019-02-14] MEDS: LORAZEPAM 2 MG INJ IV ×2 (12:35→21:57)
[2019-02-15] MEDS: KETOROLAC 30 MG INJ IV ×2 (02:11→09:30)
[2019-02-15] MEDS: CALCIUM CARBONATE 500 MG CHEW TAB PO ×2 (02:13→16:33)
[2019-02-15] MEDS: ACETAMINOPHEN 325 MG TAB PO ×3 (02:13→21:43)
[2019-02-15] MEDS: D5W-0.45 NACL + KCL 20 MEQ 1,000 ML IV ×3 (02:30→12:30)
[2019-02-15] MEDS: PANTOPRAZOLE 40 MG INJ IV ×2 (05:12→17:46)
[2019-02-15 05:40] LABS: ADD MAN DIFF? NO
[2019-02-15 05:48] LABS: WHITE BLOOD COUNT 11.4 10^3/ul (4.8-10.8)
[2019-02-15 05:48] LABS: BASOPHIL # 0.1 10^3/ul (0.0-0.1); BASOPHILS % 0.6 % (0.0-2.0); EOSINOPHILS # 0.3 10^3/ul (0.0-0.5); EOSINOPHILS % 2.8 % (0.0-7.0); HEMATOCRIT 36.6 % (42.0-52.0); HEMOGLOBIN 12.1 g/dl (14.0-18.0); LYMPHOCYTES # 2.5 10^3/ul (0.8-2.9); LYMPHOCYTES % 21.9 % (15.0-51.0); MEAN CORPUSCULAR HEMOGLOBIN 28.6 pg (29.0-33.0); MEAN CORPUSCULAR HGB CONC 33.1 g/dl (32.0-37.0); MEAN CORPUSCULAR VOLUME 86.5 fl (82.0-101.0); MEAN PLATELET VOLUME 10.6 fl (7.4-10.4); MONOCYTE # 1.2 10^3/ul (0.3-0.9); MONOCYTES % 10.9 % (0.0-11.0); NEUTROPHIL # 7.2 10^3/ul (1.6-7.5); NEUTROPHILS % 63.4 % (39.0-77.0); PLATELET COUNT 332 10^3/UL (140-415); RED BLOOD COUNT 4.23 10^6/ul (4.70-6.10); RED CELL DISTRIBUTION WIDTH 13.9 % (11.5-14.5)
[2019-02-15 06:39] LABS: ANION GAP 9 (5-13); BLOOD UREA NITROGEN 8 mg/dl (7-20); CALCIUM 8.7 mg/dl (8.4-10.2); CARBON DIOXIDE 24 mmol/L (21-31); CHLORIDE 107 mmol/L (97-110); CREATININE 0.89 mg/dl (0.61-1.24); Estimated GFR > 60 mL/min (>60); GLUCOSE 112 mg/dl (70-220); POTASSIUM 3.3 mmol/L (3.5-5.1); SODIUM 140 mmol/L (135-144)
[2019-02-15] MEDS: FLUTICASONE 0.05% 16 GM NAS SPRAY NASAL (09:29)
[2019-02-15] MEDS: LORAZEPAM 2 MG INJ IV (09:30)
[2019-02-15] MEDS ORDERED: LORAZEPAM 1 MG TAB PO (16:30)
[2019-02-16] MEDS: PANTOPRAZOLE 40 MG INJ IV (06:30)
[2019-02-16] MEDS: FLUTICASONE 0.05% 16 GM NAS SPRAY NASAL (07:56)
[2019-02-16] MEDS: CALCIUM CARBONATE 500 MG CHEW TAB PO ×2 (07:56→16:05)
[2019-02-16] MEDS: ACETAMINOPHEN 325 MG TAB PO ×2 (07:56→16:05)
[2019-02-16] MEDS ORDERED: HYDROCODONE/APAP (5/325) TAB PO ×2 (08:30)
== END 2019-02-16 17:00 | disposition home or self-care (01) | DRG 330 ==
LOC: REC 10:25 → MS1 02-11 08:43
PROC: 0DTN0ZZ Resection of Sigmoid Colon, Open Approach (ICD-10-PCS; principal; 2019-02-10 12:30)
PROC: 0DTP0ZZ Resection of Rectum, Open Approach (ICD-10-PCS; 2019-02-10 12:30)
PROC: 0DJD4ZZ Inspection of Lower Intestinal Tract, Percutaneous Endoscopic Approach (ICD-10-PCS; 2019-02-10 12:30)
DX: C19 Malignant neoplasm of rectosigmoid junction (principal); K56.7 Ileus, unspecified; I10 Essential (primary) hypertension; E78.5 Hyperlipidemia, unspecified; Z53.31 Laparoscopic surgical procedure converted to open procedure; J30.9 Allergic rhinitis, unspecified; E66.9 Obesity, unspecified; Z68.36 Body mass index [BMI] 36.0-36.9, adult; Z88.0 Allergy status to penicillin
CPT/HCPCS: 74019; 80048; 80053; 85025; 88309; 93005